=== PATIENT | female | born 1960 | race Caucasian/White ===

== ENCOUNTER → 2018-10-04 | Outpatient (CLI) | payer BC | LOC: BMCIMAGING 09:22 | PROVIDERS: ATTEND Family Medicine | DX: M79.672 Pain in left foot (principal); M25.532 Pain in left wrist; G89.29 Other chronic pain ==

== ENCOUNTER 2018-10-06 13:51 | Emergency (ER) | payer BC ==
[2018-10-06 14:03] VITALS: BP 100/64
--- NOTE | 2018-10-06 14:13 | EDPHY ---
H & P Stated Complaint: L foot injury/abrasion ? infected. Time Seen by Provider: 10/06/18 14:12 HPI/ROS: HPI: This is a 58-year-old female who presents with Chief Complaint: L foot injury/abrasion ? infected. Location: Left foot Quality: Abrasion questioning infection Duration: 2-3 days Signs and Symptoms: No bleeding, no radiation, no numbness, no weakness, no tingling, no incontinence, no decreased range of motion, + swelling, + pain, no fever, + skin color changes Timing: Improving Severity: Mild Context: Patient reports that she was in [place] when she accidentally stubbed [place] foot on a dock. She reports that she dislocated her left middle toe and reduced it herself. She returned back to the [facility] and was seen at urgent care on Monday and had an x-ray that showed no fracture. She was given a walking boot for comfort. She noted an abrasion on the top of her 2nd 3rd and 4th toe. She was given Keflex 2 days ago and reports that there is no improvement. She saw orthopedics yesterday who advised her that she has no fracture or signs of cellulitis. Denies radiation, weakness, decreased range of motion. Modifying Factors: Keflex, walking Comment: ROS: A comprehensive 10 system review of systems is otherwise negative aside from elements mentioned in the history of present illness. MEDICAL/SURGICAL/SOCIAL HISTORY: Medical history: Hypothyroidism. Surgical history: Thyroidectomy Social history: Never smoked. Employed. CONSTITUTIONAL: Nontoxic-appearing middle-aged white female, awake and alert, no obvious distress HEENT: Atraumatic and normocephalic. Neck: Supple, no midline tenderness Cardiovascular: Normal S1/S2, regular rate, regular rhythm, without murmur rub or gallop. PULMONARY/CHEST: Symmetrical and nontender. no crepitus. Clear to auscultation bilaterally. Good air movement. No accessory muscle usage. ABDOMEN: Soft, nondistended, nontender. BACK: No midline tenderness EXTREMITIES: 2/2 pulses, strength 5/5, left foot at the base of the 2nd 3rd and 4th metatarsals shows tiny superficial abrasions with minimal surrounding induration but no yane discharge, fluctuance, warmth. Bruising noted to the 2nd 3rd and 4th toes. DIP/PIP/MCP flexion/extension intact with good light touch sensation. no deformities, no clubbing, no cyanosis or edema. NEUROLOGICAL: no focal neuro deficits. GCS 15. Light touch sensation intact. SKIN: Warm and dry, no erythema. no rash. Good capillary refill. Source: Patient Exam Limitations: No limitations - Personal History Current Tetanus/Diphtheria Vaccine: Yes Current Tetanus Diphtheria and Acellular Pertussis (TDAP): Yes Tetanus Vaccine Date: 2018 - Medical/Surgical History Hx Asthma: No Hx Chronic Respiratory Disease: No Hx Diabetes: No Hx Cardiac Disease: No Hx Renal Disease: No Hx Cirrhosis: No Hx Alcoholism: No Hx HIV/AIDS: No Hx Splenectomy or Spleen Trauma: No Other PMH: thyroidectomy. - Social History Smoking Status: Never smoked Constitutional: Initial Vital Signs Temperature (C) 36.7 C 10/06/18 14:00 Heart Rate 62 10/06/18 14:00 Respiratory Rate 16 10/06/18 14:00 Blood Pressure 100/64 10/06/18 14:00 O2 Sat (%) 96 10/06/18 14:00 O2 Delivery Mode Room Air Allergies/Adverse Reactions: morphine Allergy (Intermediate, Verified 10/06/18 14:04) Other-Enter Comments Home Medications: Medication Instructions Recorded Levothyroxine 10/06/18 Sulfamethox/Tmp 800/160 mg 1 tab PO BID #14 tab 10/06/18 [Bactrim Ds] Medical Decision Making ED Course/Re-evaluation: Vital signs reviewed and stable upon arrival. No systemic signs. No signs of yane infection or abscess. Patient will be given prescription for Bactrim along with the Keflex. Long discussion with patient regarding local wound care. She is to continue to wear the walking boot until pain free. No indication to re-image. No signs of neurovascular compromise/tenting of skin/compartment syndrome/ extremities and joints examined above and below area of concern and are neurovascularly intact. This patient was seen under the supervision of my secondary supervising physician. I evaluated care for this patient independently. Discussed this patient with Dr. Hall who did not see the patient. Differential Diagnosis: Differential diagnosis includes but is not limited to toe contusion, status post dislocation and reduction, soft tissue swelling, cellulitis, abscess, tenosynovitis. Departure - Departure Disposition: Home, Routine, Self-Care Clinical Impression: History of dislocation of toe Infected abrasion of left foot Qualifiers: Encounter type: initial encounter Qualified Code(s): S90.812A - Abrasion, left foot, initial encounter; L08.9 - Local infection of the skin and subcutaneous tissue, unspecified; L08.9 - Local infection of the skin and subcutaneous tissue , unspecified Condition: Good Instructions: Wound Infection (ED) Additional Instructions: Wear walking boot until pain free or seen by Orthopedics. Continue to take Keflex as prescribed. Start taking Bactrim along with the Keflex. Wash the site daily with mild soap and water; then pat dry. Apply topical antibiotic ointment and clean sterile dressing daily until fully healed. Take Tylenol 650 mg every 4 hours and/or Ibuprofen 600 mg every 8 hours with food as needed for pain. Apply ice for 30 minutes at a time; 2-3 times per day for the next 1-2 days. Follow up with Orthopedics in 5-7 days symptoms persist at which time they will evaluate and recommend with you if conservative management versus further therapy is indicated. Referrals: Angel Zapata MD [Medical Doctor] - As per Instructions Prescriptions: Sulfamethox/Tmp 800/160 mg [Bactrim Ds] 1 tab PO BID #14 tab
[2018-10-06] MEDS ORDERED: SULFAMETHOX/TMP 800/160 MG 1 TAB PO ONE (14:42)
== END 2018-10-06 15:13 | disposition home or self-care (01) ==
DX: S90.812D Abrasion, left foot, subsequent encounter (principal)